=== PATIENT | female | born 1985 | race Caucasian/White ===

== ENCOUNTER 2019-07-20 22:23 | Emergency (ER) | payer OTHER ==
[2019-07-21 01:59] LABS: #Basophils 0.1 thou/uL (0.0-0.2); #Eosinphils 0.1 thou/uL (0.0-0.7); #Lymphocytes 3.4 thou/uL (1.20-3.40); #Monocytes 0.6 thou/uL (0.11-0.59); #Neutrophils 5.4 thou/uL (1.40-6.50); %Basophils 1.1 % (0.0-1.0); %Lymphocytes 35.5 % (21.0-51.0); %Monocytes 5.7 % (0.0-10.0); %Neutrophils 56.8 % (42.0-75.0); Hemoglobin 14.1 g/dL (12.0-16.0); Mean Corpuscular HGB CONC 34.9 g/dL (32.0-36.0); Mean Corpuscular Hemoglobin 32.6 pg (27.0-31.0); Mean Corpuscular Volume 93.5 fL (78.0-98.0); Mean Platelet Volume 8.6 fL (7.4-10.4); Platelet Count 214 thou/uL (130-400); Red Blood Cell (RBC) Count 4.33 mill/uL (4.20-5.40); White Blood Cell (WBC) Count 9.6 thou/uL (4.8-10.8)
[2019-07-21 02:27] LABS: BUN (Urea Nitrogen) 8 mg/dL (7.0-18.7); Calc. Creatinine Clearance 0 mL/min (70-130); Calcium 8.4 mg/dL (7.8-10.44); Carbon Dioxide 22 mmol/L (22-29); Chloride 108 mmol/L (98-107); Estimated GFR-MDRD Greater than 90; Glucose 87 mg/dL (70-105); Potassium 3.9 mmol/L (3.5-5.1); Sodium 139 mmol/L (136-145)
[2019-07-21 02:42] LABS: Anion Gap 13 mmol/L (10-20)
--- NOTE | 2019-07-21 07:46 | CT ---
PRELIMINARY REPORT/[facility]/EMERGENCY AFTER HOURS PROCEDURE EXAM: CT Abdomen and Pelvis Without Intravenous Contrast CLINICAL HISTORY: ER9; F34 presents to ED with c/o abd pain onset 6pm transferred from [place]. PT reports she has had this before but what was different was the right rib pain. "[place] like an ice pick" Pt reports she had a bowel movement and was then hurting "internally not when I was going". PT reports pain to the m iddle and right of the abd. hx: multiple hernia (pelvic), cysts. 3 C-sections TECHNIQUE: Axial computed tomography images of the abdomen and pelvis without intravenous contrast. CONTRAST: None. COMPARISON: None provided. FINDINGS: LUNG BASES: No basilar airspace consolidation or pleural effusion. 7 mm calcified granuloma in the r ight middle lobe. LIVER: Unremarkable. GALLBLADDER AND BILE DUCTS: Cholecystectomy clips in the gallbladder fossa. No ductal dilation. PANCREAS: Unremarkable. SPLEEN: Unremarkable. ADRENAL GLANDS: Unremarkable. KIDNEYS, URETERS, AND BLADDER: Unremarkable. No hydronephrosis or nephrolithiasis. No ureteral or suzanne dder calculi. STOMACH AND BOWEL: Sutures along the stomach. No obstruction. No wall thickening. No CT evidence of colitis or acute diverticulitis. APPENDIX: No CT evidence for appendicitis. PERITONEUM: No free fluid. No free air. LYMPH NODES: No lymphadenopathy. REPRODUCTIVE: Unremarkable as visualized. VASCULATURE: No aortic aneurysm. ABDOMINAL WALL AND SOFT TISSUES: Fat filled umbilical hernia. BONES: No fracture or suspicious osseous abnormality. IMPRESSION: No acute intra-abdominal or pelvic abnormality. Postsurgical changes along the stomach. Status post cholecystectomy. ELECTRONICALLY SIGNED BY: Kevin Omalley MD Jul 21, 2019 3:07:25 AM SUPERVISOR COUNSELING [employer] GUIDANCE This report is intended for review by the ordering physician only, in accordance of law. If you recei ve this report in error, please call [facility] at [phone]. FINAL REPORT EMERGENCY AFTER HOURS NONCONTRAST CT ABDOMEN AND PELVIS: HISTORY: Right lower quadrant abdominal pain. IMPRESSION: 1. Cholecystectomy. 2. Postsurgical changes of the stomach. 3. No renal or ureteral calculi are seen bilaterally, and there is no hydronephrosis. 4. No CT evidence of appendicitis. 5. No acute findings are seen on this nonenhanced CT abdomen and pelvis. Findings are in agreement with the preliminary report by [facility]. Code QA Transcribed Date/Time: 07/21/2019 8:00 AM
--- NOTE | 2019-07-21 08:33 | ULT ---
PRELIMINARY REPORT/[facility]/EMERGENCY AFTER HOURS PROCEDURE: EXAM: US Pelvis, Complete. CLINICAL HISTORY: RLQ pain tonight, nausea hx: born with no lt ov, rt ov cysts, Surgical hx: multi hernia surgeries ut - hypoechoic area to left side of ut, possible fibroid endo wnl rt ov - complex cyst 2.1x1.3x2.0cm, + blood flow no left ov no free fluid RLQ area of pain - prominent bowel, appendix not seen incidenta l - echogenic foci within urethra TECHNIQUE: Transvaginal and transabdominal pelvic ultrasound (complete) with image documentation. COMPARISON: None provided. FINDINGS: ENDOMETRIUM: Normal thickness. 5 mm. UTERUS/CERVIX: Normal size and contour. 1.3 cm hypoechoic myometrial mass within the anterior left b claribel of the uterus consistent with fibroid. RIGHT OVARY: The right ovary measures 4.7 x 2.6 x 3.0 cm. Normal follicles. Cyst within the right o vary measuring 2.1 x 1.3 x 2.0 cm with lacelike internal echoes compatible with hemorrhagic cyst. No adnexal mass. Normal blood flow. LEFT OVARY: Not seen. No adnexal masses. FREE FLUID: No free fluid. Incidentally noted is a 3 mm echogenic focus in the region of the urethra with mild posterior acousti c shadowing. IMPRESSION: 1. Right ovarian 2.1 cm hemorrhagic cyst. No evidence of torsion. 2. 1.3 cm uterine fibroid. 3. Incidentally seen 3 mm echogenic foci in the region of the urethra which is nonspecific but could represent urinary stone in the appropriate clinical setting. ELECTRONICALLY SIGNED BY: James Madsen M.D. Jul 21, 2019 1:35:34 AM FORMING [employer]ARD[employer] CONTROL OPERATOR This report is intended for review by the ordering physician only, in accordance of law. If you recei ve this report in error, please call [facility] at [phone]. FINAL REPORT ULTRASOUND PELVIC TRANSVAGINAL WITH DOPPLER: HISTORY: Pelvic pain. COMPARISON: None. FINDINGS: The findings and impression are concordant with the preliminary report. The calcifications could be within periurethral glands. POS: CET
== END 2019-07-21 03:10 | disposition home or self-care (01) ==
LOC: ERS 22:23
DX: N83.201 Unspecified ovarian cyst, right side (principal); N23 Unspecified renal colic; J45.909 Unspecified asthma, uncomplicated
CPT/HCPCS: 36415; 74176; 76856; 80048; 85025